=== PATIENT | female | born 1980 | race Caucasian/White ===

== ENCOUNTER 2023-12-18 13:55 | Emergency (ER) | payer SELFPAY ==
--- NOTE | ~2023-12-18 | CT_ITS ---
EXAMINATION: CT facial & cervical spine wo DATE: 12/18/2023 14:21 INDICATION: Neck pain. Head injury. Headache. TECHNIQUE: Computed tomography (CT) of the maxillofacial region and cervical spine was performed with out intravenous contrast. Automated exposure control and iterative reconstruction technique were empl oyed. The dose-length product was 177.78 mGy-cm. COMPARISON: None FINDINGS: MAXILLOFACIAL CT: There is frontal scalp soft tissue swelling. The orbits are normal. There is mild mucosal thickening in the paranasal sinuses. There is leftward deviation of the nasal septum. No fracture. The mastoid a ir cells are normal. There is extensive dental disease. CERVICAL SPINE CT: Bone alignment is normal. Vertebral body heights are normal. There is mildly decreased disc height at C5-C6. The following disc levels are specifically discussed: C2-C3: There is mild bilateral uncovertebral joint osteoarthritis. There is no facet joint osteoarthr itis. There is no neural foraminal stenosis. There is no central canal stenosis. C3-C4: There is no uncovertebral joint osteoarthritis. There is no facet joint osteoarthritis. There is no neural foraminal stenosis. There is no central canal stenosis. C4-C5: There is no uncovertebral joint osteoarthritis. There is no facet joint osteoarthritis. There is no neural foraminal stenosis. There is no central canal stenosis. C5-C6: There is mild bilateral uncovertebral joint osteoarthritis. There is mild bilateral facet join t osteoarthritis. There is no neural foraminal stenosis. There is mild central canal stenosis. C6-C7: There is no uncovertebral joint osteoarthritis. There is no facet joint osteoarthritis. There is no neural foraminal stenosis. There is no central canal stenosis. C7-T1: There is no uncovertebral joint osteoarthritis. There is mild bilateral facet joint osteoarthr itis. There is no neural foraminal stenosis. There is no central canal stenosis. IMPRESSION: 1. No fracture. 2. Mild cervical spondylosis. 3. Extensive dental disease. Reviewed, dictated and finalized at location A.
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
[2023-12-18 13:56] VITALS: BP 132/92; PULSE 103; RESP 18; TEMP 36.3; O2SAT 98
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
[2023-12-18 13:59] VITALS: BP 132/92; PULSE 103; RESP 18; TEMP 36.3; O2SAT 98
[2023-12-18] MEDS: ACETAMINOPHEN 500 MG TABLET 1000 MG PO (14:40)
[2023-12-18] MEDS: CYCLOBENZAPRINE HCL 10 MG TABLET PO (14:40)
== END 2023-12-18 15:07 | disposition home or self-care (01) ==
PROVIDERS: Emergency Provider Emergency Medicine
DX: S01.21XA Laceration without foreign body of nose, initial encounter (principal); S01.81XA Laceration without foreign body of other part of head, initial encounter; S16.1XXA Strain of muscle, fascia and tendon at neck level, initial encounter; Y04.2XXA Assault by strike against or bumped into by another person, initial encounter
CPT/HCPCS: 70450; 70486; 72125; 99284; A9270

== ENCOUNTER 2024-06-08 20:05 | Emergency (ER) | payer SELFPAY ==
--- NOTE | ~2024-06-08 | CT_ITS ---
EXAMINATION: CT brain wo con DATE: 06/08/2024 20:31 INDICATION: TRANSIENT ALTERATION OF AWARENESS. ETOH. . TECHNIQUE: Computed tomography (CT) of the head was performed without intravenous contrast. The mA wa s adjusted according to patient size. Iterative reconstruction technique was employed. The dose-lengt h product was 605.33 mGy-cm. COMPARISON: 12/18/2023. FINDINGS: No acute intracranial hemorrhage or extra-axial fluid collection. No hydrocephalus, mass, or herniation. No acute ischemic infarct. Unremarkable dural venous sinus attenuation. No acute osseous abnormality. Air-fluid level in the right maxillary sinus, right ethmoid mucosal thickening, the remaining aerated spaces are clear. IMPRESSION: No acute intracranial process. CT findings suggestive of acute right maxillary sinusitis. Reviewed, dictated and finalized at location K. SALES SYSTEMS ENGINEER
--- NOTE | 2024-06-08 20:07 | ECG_ITS ---
Test Date: 2024-06-08 20:16:47 Measurements Intervals [place] Rate: 82 P: 33 WA: 125 QRS: 66 QRSD: 94 T: 67 QT: 412 QTc: 484 Interpretive Statements SINUS RHYTHM INTERPRETATION BASED ON A DEFAULT AGE OF 40 YEARS No previous ECG available for comparison Electronically Signed On 06-10-2024 18:15:38 RESEARCH AND DEVELOPMENT DIRECTOR by Cherelle Glass M.D.
[2024-06-08 20:10] VITALS: BP 123/76; PULSE 82; PULSE 91; RESP 18; TEMP 36.8; O2SAT 100
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
[2024-06-08 20:21] VITALS: BP 105/70; PULSE 87; RESP 18; TEMP 35.7; O2SAT 98
[2024-06-08 20:51] VITALS: PULSE 93; RESP 17
[2024-06-08 21:00] VITALS: PULSE 90; RESP 14
[2024-06-08 21:15] VITALS: PULSE 95; RESP 20; O2SAT 100
[2024-06-08 21:30] VITALS: PULSE 88; RESP 18; O2SAT 100
[2024-06-08 21:55] LABS: Basophils Absolute Auto 0.05 K/mm3 (0.00-0.10); Basophils Percent Auto 0.5 % (0.0-1.0); Eosinophils Absolute Auto 0.12 K/mm3 (0.02-0.50); Eosinophils Percent Auto 1.2 % (1.0-6.0); Hematocrit 41.6 % (35.0-49.0); Hemoglobin 13.8 g/dL (12.0-15.0); Immature Granulocyte Absolute 0.05 K/mm3 (0.00-0.00); Immature Granulocyte Percent A 0.5 % (0.0-0.0); Lymphocytes Absolute Auto 1.78 K/mm3 (1.10-4.50); Lymphocytes Percent Auto 18.1 % (18.0-42.0); Mean Corpuscular HGB Conc 33.2 g/dL (32-36); Mean Corpuscular Hemoglobin 28.8 pg (27.0-31.0); Mean Corpuscular Volume 86.7 fL (78.0-102.0); Mean Platelet Volume 10.7 fl (9.2-11.8); Monocytes Percent Auto 5.1 % (2.0-11.0); Neutrophils Absolute Auto 7.31 K/mm3 (1.70-7.20); Neutrophils Percent Auto 74.6 % (50.0-70.0); Platelet Count Result 343 K/mm3 (150-420); Red Cell Distribution Width 12.6 % (11.6-14.4); White Blood Count 9.8 K/mm3 (4.8-10.8)
[2024-06-08 22:09] LABS: Alanine Aminotransferase 14 U/L (14-59); Albumin Level 3.3 g/dL (3.4-5.0); Alkaline Phosphatase 74 U/L (46-116); Anion Gap 12 mmol/L (4-12); Aspartate Amino Transferase < 10 U/L (15-37); Bilirubin,Total 0.2 mg/dL (0.00-1.00); Blood Urea Nitrogen 13 mg/dL (7-18); Calcium 8.2 mg/dL (8.5-10.1); Carbon Dioxide 25 mmol/L (21-32); Chloride 105 mmol/L (98-108); Estimated CRCL calculation 72 ml/min; Estimated Glomerular Filt Rate > 60; Ethanol 63 mg/dL (0-6); Glucose 74 mg/dL (70-99); Magnesium 1.8 mg/dL (1.8-2.4); Osmolality Calculated 293 mOsm/kg (285-295); Potassium 3.6 mmol/L (3.5-5.1); Sodium 142 mmol/L (136-145); Total Protein 6.3 g/dL (6.4-8.2); Troponin I < 4.0 ng/L (0.00-60.4)
== END 2024-06-08 21:47 | disposition left against medical advice (07) ==
PROVIDERS: Emergency Provider Family Medicine
DX: R41.82 Altered mental status, unspecified (principal)
CPT/HCPCS: 36415; 70450; 80053; 82077; 83735; 84484; 85025; 93005; 96374; 99284; J2405; J7120

== ENCOUNTER 2025-02-05 18:54 | Emergency (ER) | payer OTHER, SELFPAY ==
[2025-02-05 18:54] VITALS: BP 153/99; PULSE 106; RESP 18; TEMP 37.2; O2SAT 99
--- NOTE | 2025-02-05 18:55 | ED_ITS ---
HPI - Abdominal Pain General Chief Complaint: Abdominal Pain Stated Complaint: abdominal pain Time Seen by Provider: 02/05/25 18:54 Source: patient Mode of arrival: ambulatory Limitations: no limitations History of Present Illness HPI narrative: 45-year-old female with a history of alcohol use, Kidney stones status post cystoscopy with ureteral stents, presents to the ED with a 3 year history of -- upper abdominal pain which comes on periodically, stays for couple of hours and resolved spontaneously. Over the last few weeks the pain episodes have increased in intensity and duration. Patient is located in the upper abdomen and radiates to both shoulders. this morning when the pain came on it was rated as 8/10. It radiated to both shoulders. Currently the patient has a pain level of 2/10. -- Patient has nausea without any vomiting. No fever or chills. no diarrhea. No history of NSAID use. history of hysterectomy and status post 4 C sections MD elicited complaint: abdominal pain Pertinent past history: kidney stones Onset (ago): year(s) ( 3 years ago) Pain Consistency: other ( Now improved) Location: epigastric Severity: severe Quality: aching Radiation: other ( bilateral shoulders) Exacerbating factors: nothing Relieving factors: nothing Associated symptoms: nausea Related Data Allergies Allergy/AdvReac Type Severity Reaction Status Date / Time morphine Allergy Gastrointestinal Verified 02/05/25 18:56 Upset Review of Systems 2 Review of Systems: All systems reviewed & are unremarkable except as noted in HPI and below Constitutional: Constitutional: Reports as per HPI and Reports no additional constitutional complaints Eyes: Eyes: Reports as per HPI and Reports no additional eye complaints ENT: Reports system reviewed and no additional complaints, except as documented and Reports as per HPI Cardiovascular: Cardiovascular: Reports as per HPI and Reports no additional cardiovascular complaints Respiratory: Respiratory: Reports as per HPI and Reports no additional respiratory complaints Gastrointestinal: Gastrointestinal: Reports as per HPI, Reports no additional gastrointestinal complaints, Reports abdominal pain and Reports nausea Genitourinary: Genitourinary: Reports no additional female genitourinary complaints and Reports as per HPI Musculoskeletal: Musculoskeletal: Reports no additional musculoskeletal complaints and Reports as per HPI Integumentary/Breasts: Skin/Breast: Reports system reviewed and no additional complaints, except as docu and Reports as per HPI Neurologic: Reports system reviewed and no additional complaints, except as documented and Reports as per HPI Psychiatric: Psychiatric: Reports no additional psychiatric complaints and Reports as per HPI Endocrine: Endocrine: Reports no additional endocrine complaints and Reports as per HPI Hematologic/Lymphatic: Hematologic/Lymphatic: Reports no additional hematologic/lymphatic complaints and Reports as per HPI Allergic/Immunologic: Allergic/Immunologic: Reports no additional allergic/immunologic complaints and Reports as per HPI [facility] Surgical History Surgical History (Updated 02/05/25 @ 19:14 by Arturo Dodd MD) H/O: hysterectomy Exam 2 Narrative: blood pressure 153/99 Const: General: no acute distress Orientation/consciousness: patient oriented x3 Limitations: no limitations HENMT: Head: normal to inspection Ears: external ears normal F diya/Nose/Sinus: Normal external nose present Face and sinus: normal facial exam Mouth: Yes Normal oral and palatal mucosa present Throat: posterior oropharynx normal Eyes: Conjunctivae: conjunctivae normal Pupils: Equal, round and reactive pupils present EOM: EOMs intact bilaterally Direct Ophthalmoscopy: no photophobia Neck: Neck: normal visual inspection, no lymphadenopathy and no meningeal signs Chest: Chest palpation & inspection: normal inspection of the chest Resp: Effort & Inspection: normal respiratory effort Auscultation: clear to auscultation bilaterally Cardio: Rate: regular rate Rhythm: regular rhythm GI: GI Palp: Yes Soft to palpation Auscultation: normal bowel sounds O ther: upper abdominal tenderness without any rigidity/rebound : General: Yes no CVA tenderness Back/Spine/Pelvis: Back: no CVA tenderness Skin: General skin exam: normal color Rashes: no rashes Wounds: no wounds Neuro: General: patient oriented x3, moves all extremities, no meningeal signs, no focal motor deficits and CN's II-XI intact bilaterally Cranial nerves: Yes Nystagmus not present Speech: normal speech Gait exam (Neuro): Normal gait present Extrem: General: normal to inspection and no clubbing, cyanosis or edema Psych: Mental Status: mental status grossly normal Affect: normal affect Attitude: cooperative Course Course Emergency Course: abdominal pain-- Patient has tenderness of upper abdomen without any rigidity or rebound. Patient is afebrile with normal white cell count, normal lactate and a normal lipase. Urine examination is unremarkable. In view of her history of alcohol use upper abdominal pain appears to be secondary to gastritis. Vital Signs Vital signs: Vital Signs Temperature 37.2 C 02/05/25 18:54 Pulse Rate 106 H 02/05/25 18:54 Respiratory Rate 18 02/05/25 18:54 Blood Pressure 153/99 H 02/05/25 18:54 Pulse Oximetry 99 02/05/25 18:54 Oxygen Delivery Room Air 02/05/25 18:54 Temperature 37.2 C 02/05/25 18:54 Pulse Rate 106 H 02/05/25 18:54 Respiratory Rate 18 02/05/25 18:54 Blood Pressure 153/99 H 02/05/25 18:54 Pulse Oximetry 99 02/05/25 18:54 Oxygen Delivery Room Air 02/05/25 18:54 MDM - Abdominal Pain MDM Narrative Medical decision making narrative: Abdominal pain gastritis Differential Diagnosis Differential diagnosis: Likely pancreatitis Medical Records Attestation: I reviewed the patient's medical records. Lab Data Attestation: I reviewed the patient's lab results. 02/05/25 19:13 02/05/25 19:13 Labs: Lab Results 02/05/25 02/05/25 Range/Units 19:08 19:13 WBC 9.6 (4.8-10.8) K/mm3 RBC 4.44 (4.20-5.40) M/mm3 Hgb 12.7 (12.0-15.0) g/dL Hct 38.5 (35.0-49.0) % MCV 86.7 (78.0-102.0) fL MCH 28.6 (27.0-31.0) pg MCHC 33.0 (32-36) g/dL RDW 13.0 (11.6-14.4) % Plt Count 377 (150-420) K/mm3 MPV 9.9 (9.2-11.8) fl Immature Gran % (Auto) 0.3 H (0.0-0.0) % Neut % (Auto) 56.6 (50.0-70.0) % Lymph % (Auto) 33.5 (18.0-42.0) % [place] % (Auto) 7.6 (2.0-11.0) % Eos % (Auto) 1.7 (1.0-6.0) % Baso % (Auto) 0.3 (0.0-1.0) % Lymph # (Auto) 3.21 (1.10-4.50) K/mm3 [place] # (Auto) 0.73 (0.10-0.90) K/mm3 Eos # (Auto) 0.16 (0.02-0.50) K/mm3 Baso # (Auto) 0.03 (0.00-0.10) K/mm3 Abs Immat Gran (auto) 0.03 H (0.00-0.00) K/mm3 Absolute Neuts (auto) 5.42 (1.70-7.20) K/mm3 Absolute Nucleated RBC 0.00 (0.00-0.00) K/mm3 Nucleated RBC % 0.0 (0-0.0) % PT 10.0 (9.50-12.1) Seconds INR 0.9 Sodium 141 (137-145) mmol/L Potassium 3.4 (3.4-5.0) mmol/L Chloride 105 (98-107) mmol/L Carbon Dioxide 24 (22-30) mmol/L Anion Gap 12 (4-12) mmol/L BUN 10 (7-17) mg/dL Creatinine 0.73 (0.7-1.0) mg/dL Estim Creat Clear Calc 73 ml/min Estimated GFR > 60 (59 - ) Glucose 90 (65-110) mg/dL Calculated Osmolality 291 (285-295) mOsm/kg Lactic Acid 1.0 (0.4-2.0) mmol/L Calcium 9.7 (8.4-10.2) mg/dL Total Bilirubin 0.5 (0.2-1.3) mg/dL AST 28 (14-36) U/L ALT 16 (6-35) U/L Alkaline Phosphatase 66 (38-126) U/L Troponin I < 0.012 (0.000-0.034) ng/mL Total Protein 9.1 H (6.3-8.2) g/dL Albumin 4.6 (3.5-5.1) g/dL Lipase 81 (23-300) U/L Urine Color Yellow (Yellow) Urine Appearance Clear (Clear) Urine pH 6.0 (5.0-8.0) Ur Specific [place] >= 1.030 H (1.010-1.020) Urine Protein Negative (Negative) Urine Glucose (UA) Negative (Negative) Urine Ketones Trace H (Negative) Ur Blood (Man) Negative (Negative) Urine Nitrate Negative (Negative) Urine Bilirubin Negative (Negative) Urine Urobilinogen 0.2 (0.2-1.0) mg/dL Leukocyte Esterase Rfl Negative (Negative) ANMOL/UL Discharge Plan Discharge Clinical Impression: Abdominal pain Qualifiers: Abdominal location: epigastric Qualified Code(s): R10.13 - Epigastric pain Gastritis Qualifiers: Gastritis type: unspecified gastritis Chronicity: chronic Gastritis bleeding: w ithout bleeding Qualified Code(s): K29.50 - Unspecified chronic gastritis without bleeding Patient Disposition: Home Condition: Stable Instructions: Antibiotic Form, Gastritis (ED), Abdominal Pain (ED) Patient Language: Belarusian Prescriptions: New famotidine [Pepcid] 40 mg tablet 40 mg PO DAILY Qty: 30 0RF Follow-up/Referrals: UNKNOWN,DOCTOR [Non-Staff] Time of Disposition: 19:43
--- OUTSIDE RECORDS SUMMARY | 2025-02-05 18:56 | XMS_ITS | Clinical Summary ---
Author Organization [facility] Address [address] [place] [address] Care Team Providers Care Care Transition Mgr Name Role Phone Elvira Calvin MD Primary Care Provider Source Comments [facility],non-owned Affiliates and Associated Physician Practices is amultiple site organization consisting of ambulatory clinics and hospital sitesin [place], [place], [place] and [place]. This disclosure is being madepursuant to the Care Everywhere program and may not contain all information available regarding this patient. Last updated 18.[facility] Allergies Active Allergy Reactions Criticality Noted Date Comments Morphine Other,Unknown 01/05/2023 Pt become nauseated. Pt become nauseated. Medications * This document contains information received from the source organization and may not represent a complete record from that organization. * Be aware that medications may not be up to date on this document. Alwaysverify current medications with the patient. cyclobenzaprine (Flexeril) 10 MG tablet Take 1 (one) tablet by mouth 3 times daily as needed for Muscle Spasms 30 tablet 4 Active oxyCODONE, immediate release, (Roxicodone) 5 MG tabletIndications :Lumbar radiculopathy Take 1 (one) tablet by mouth every 6 hours as needed for Pain 30 tablet 4 Active acetaminophen (Tylenol) 500 MG capsule Take 2 (two) capsules by mouth 3 times daily 180 capsule 4 Active Additional Information Patient taking differently: 500-1,000 mgOralEVERY 6 HOURS PRN, Fever, Pain, Headache, Reported on 06/08/2023 polyethylene glycol 3350 (Miralax) 17 GM/SCOOP powder Take 17 (seventeen) g by mouth once daily 238 g 4 Active Additional Information Patient taking differently:17 g OralDAILY PRN, Constipation, Reported on 06/08/2023 docusate sodium (Colace) 100 MG capsule Take 1 (one) capsule by mouth 2 times daily 60 capsule 4 Active Additional Information Patient taking differently:100 mg Oral2 TIMES DAILY PRN, Constipation, Reported on 06/08/2023 Active Problems Problem Noted Date Diagnosed Date Lumbar radiculopathy 02/10/2023 04/04/2023 Overview (04/04/2023): Added automatically from request for surgery [id number] Major depressive disorder, r ecurrent, severe without psychotic features 03/12/2018 Immunizations Immunization Administration Dates Next Due FLU VACCINE QUAD IIV4 SPLIT 0.25 ML IM 3 INFLUENZA VACCINE 03/23/2021 INFLUENZA VACCINE, QUADR. (A FLURIA, FLUZONE QUADRIVALENT; 6MO+) (IIV4) 03/25/2022 INFLUENZA VACCINE, QUADR. (F LUZONE; FLULAVAL; FLUARIX; AFLURIA QUADRIVALENT; 6MO+), 0.5 ML (IIV4) 03/13/2018 INFLUENZA VACCINE, TRIV. (FL UZONE; FLULAVAL; FLUARIX; AFLURIA TRIVALENT; 6MO+), 0.5 ML (IIV3) 03/23/2021 TDAP (7yrs+) 03/06/2023 TDAP, HISTORIC VACCINE 06/26/2014,12/18/2012 Family History Medical History Relation Name Comments None Known Brother 1 None Known Brother 2 CVA Father Cancer - Pancreatic Father Cancer - Thyroid Father High Blood Pressure Father None Known Maternal Grandfather pt did not know grandparents None Known Maternal Grandmother pt did not know grandparents [place] Disease Mother None Known Paternal Grandfather pt did not know grandparents None Known Paternal Grandmother pt did not know grandparents Relation Name Status Comments Brother 1 Alive Brother 2 Alive Father Maternal Grandfather Maternal Grandmother Mother Paternal Grandfather Paternal Grandmother Social History Tobacco Use Types Packs/Day Years Used Date Smoking Tobacco: Every Day Cigarettes 0.5 30.9 Started: 03/12/1994 Passive Smoke Exposure: Never Smokeless Tobacco: Never Tobacco Cessation:Ready to Q uit: Not Asked; Counseling Given: Not Answered Comments:Pt tried chantix, hypnosis, tried cold turkey Alcohol Use Standard Drinks/Week Comments Yes 5 (1 standard drink = 0.6 oz pure alcohol) Drinks high alcohol content beer. stopped two weeks ago. AUDIT-C Answer Date Recorded Q1: How often do you have a drink containing alc ohol? 2-3 times a week 05/24/2023 Q2: How many drinks containi ng alcohol do you have on a typical day when you are drinking? 1 or 2 05/24/2023 Q3: How often do you have si x or more drinks on one occasion? Never 05/24/2023 PHQ-2 Answer Date Recorded Patient Health Questionnaire-2 Score 0 05/04/2023 Comments No Sex and Gender Information Value Date Recorded Sex Assigned at Female 05/13/2023 9:48 PM TRANSIT PROOF MACHINE OPERATOR Legal Sex Female 5:35 AM CDT Gender Identity Female 05/13/2023 9:48 PM TRANSIT PROOF MACHINE OPERATOR Sexual Orientation Straight 05/13/2023 9: 48 PM TRANSIT PROOF MACHINE OPERATOR Last Filed Vital Signs Vital Sign Reading Time Taken Comments Blood Pressure 111/69 05/24/2023 1:15 PM TRANSIT PROOF MACHINE OPERATOR Pulse 70 05/24/2023 1:15 PM TRANSIT PROOF MACHINE OPERATOR Temperature 35.7 C (96.3 F) 05/24/2023 12:55 PM TRANSIT PROOF MACHINE OPERATOR Respiratory Rate 10 05/24/2023 1:26 PM TRANSIT PROOF MACHINE OPERATOR Oxygen Saturation 99% 05/24/2023 1:26 PM TRANSIT PROOF MACHINE OPERATOR Inhaled Oxygen Concentration - - Weight 64.9 kg (143 lb) 05/24/2023 7:47 AM TRANSIT PROOF MACHINE OPERATOR Height 162.6 cm (5' 4) 05/24/2023 7:47 AM TRANSIT PROOF MACHINE OPERATOR Body Mass Index 24.55 05/24/2023 7:47 AM TRANSIT PROOF MACHINE OPERATOR Plan of Treatment Upcoming Encounters Date Type Department Care Team (Late st Contact Info) Description 05/29/2025 1:30 PM TRANSIT PROOF MACHINE OPERATOR Office Visit [facility] - Orthopedics [address] [place] [address] [place] [address] Omar Gross MD [address] [facility] [place] [address] Health Maintenance Due Date Last Done Comments COLOGUARD (AGES 45-75) - COLON CA SCREENING 1980 COLON MONITORING 1980 COLONOSCOPY - COLON CA SCREENING 1980 CT COLONOGRAPHY - COLON CA SCREENING 1980 Colorectal Cancer Screening 1980 FIT - COLON CA SCREENING 1980 FLEX SIG - COLON CA SCREENING 1980 MAMMOGRAM 1980 HIV SCREENING 01/09/1995 HEPATITIS C SCREENING 01/05/1998 HEPATITIS B VACCINE (1 of 3 - 19+ 3-dose series) 01/09/1999 PNEUMOCOCCAL VACCINE (1 of 2 - PCV) 01/09/1999 HPV VACCINE (1 - 3-dose SCDM series) 01/09/2007 LIPID TESTING 03/14/2023 03/14/2018 DEPRESSION SCREENING 05/22/2024 01/05/2023 COVID-19 VACCINE (3 - 2024- season) 2025 07/16/2021, 06/17/2021 INFLUENZA VACCINE (#1) 2025 , 03/25/2022, 03/23/2021, Additional history exists ZOSTER VACCINE (1 of 2) 01/09/2030 DTAP/TDAP/TD VACCINES (4 - Td or Tdap) 03/06/2033 03/06/2023, 06/26/2014, 12/18/2012 HIB VACCINE Aged Out No longer eligi ble based on patient's age to complete this topic MENINGOCOCCAL (Group B) VACCINE SHARED DECISION-MAKING Aged Out No longer eligible based on patient's age to complete this topic MENINGOCOCCAL GROUPS A/C/Y/W VACCINE Aged Out No longer eligible based on patient's age to complete this topic Procedures Procedure Name Priority Date/Time Associated Diagnosis Comments LIPID PROFILE AM Draw 03/14/2018 6:33 AM CDT from Last 3 Months or Most Recently Relevant to Health Maintenance Results * LIPID PROFILE (03/14/2018 6:33 AM CDT) Cholesterol 179 <200 mg/dL 03/14/2018 7:39 AM T [facility] Triglycerides 74 <150 mg/dL 03/14/2018 7:39 AM T [facility] HDL Cholesterol 65 >40 mg/dL 8 7:39 AM T [facility] Chol HDL Ratio 2.8 1.0 - 6.0 03/14/2018 7:39 AM [facility] LDL Calculated 99 65 - 130 mg/dL 03/14/2018 7:39 AM T [facility] VLDL Calculated 15 10 - 40 mg/dL 03/14/2018 7:39 AM T [facility] Blood BLOOD SPECIMEN / Unknown Lab Venipuncture / Unknown 03/14/2018 6:33 AM CDT 03/14/2018 6:52 AM CDT [facility]ATORY - 03/14/2018 7:39 AM T Lipid Profile Comment: CHOLESTEROL LEVEL..................CLINICAL INTERPRETATION LESS THAN 200 MG/DL..............................DESIRABLE 200-239 MG/DL..............................BORDERLINE HIGH GREATER THAN 240 MG/DL................................HIGH LDL-CHOLESTEROL LEVEL..............CLINICAL INTERPRETATION LESS THAN 100 MG/DL................................OPTIMAL 100-129 MG/DL.................................NEAR OPTIMAL GREATER THAN 160 MG/DL...........................HIGH RISK HDL RISK LEVEL GREATER THEN 60 MG/DL............................DECREASED 40-60 MG/DL........................................AVERAGE LESS THAN 40 MG/DL...............................INCREASED TRIGLYCERIDE LEVEL..................CLINICAL INTERPRETATION LESS THAN 150 MG/DL...............................DESIRABLE 150-199 MG/DL...............................BORDERLINE HIGH 200-499 MG/DL..........................................HIGH GREATER THAN 500..................................VERY HIGH THE NATIONAL CHOLESTEROL EDUCATION PROGRAM HAS SET THE ABOVE GUIDELINES (REFERANCE VALUES) FOR CHOLESTEROL AND HDL. RISK ASSOCIATED WITH CHOLESTEROL/HDL RATIOS RISK....................MALE RATIO.............FEMALE RATIO 1/2 AVERAGE.................<3.4.......................<3.3 LOW RISK.................... 4.0 ...................... 3.8 AVERAGE..................... 5.0 ...................... 4.5 2X AVERAGE.................. 9.5 ...................... 7.0 3X AVERAGE...................>23........................>11 us Eulogio Resendiz [place] HOOK UP-CREDIT AND COLLECTION MANAGER LAB - CHEMISTRY ORDERABL ES Final Result [facility] [address] from Last 3 Months or Most Recently Relevant to Health Maintenance Insurance MEDICAID LIMITED BENEFIT - [place] * Guarantor: CINDY RANDOLPH Account Type Relation to Patient Date of Phone Billing Address Personal/Family 1980 Advance Directives * Full Code (Latest Code Status on File) Date Activated Date Inactivated Comments 03/12/2018 6:03 PM 03/16/2018 11:06 AM Care Teams Care Transition Mgr Relationship Specialty Start Date End Date Elvira Calvin MD [address] [place] [address] PCP - General Internal Medicine 05/04/23
--- NOTE | 2025-02-05 19:06 | PC.NURSE ---
Shift report given to MER Par[place]
[2025-02-05 19:18] LABS: Hematocrit 38.5 % (35.0-49.0); Hemoglobin 12.7 g/dL (12.0-15.0); Immature Granulocyte Percent A 0.3 % (0.0-0.0); Lymphocytes Absolute Auto 3.21 K/mm3 (1.10-4.50); Mean Corpuscular HGB Conc 33.0 g/dL (32-36); Mean Corpuscular Hemoglobin 28.6 pg (27.0-31.0); Mean Corpuscular Volume 86.7 fL (78.0-102.0); Nucleated Red Blood Cells Absolute Auto 0.00 K/mm3 (0.00-0.00); Nucleated Red Blood Cells Perc 0.0 % (0-0.0); Platelet Count Result 377 K/mm3 (150-420); Red Blood Count 4.44 M/mm3 (4.20-5.40); White Blood Count 9.6 K/mm3 (4.8-10.8)
[2025-02-05 19:20] LABS: Add Urine Microscopic? NO; Appearance Urine Clear (Clear); Glucose Urine UA Negative (Negative); Leukocyte Esterase Ur Negative LEU/UL (Negative); Nitrate Urine Negative (Negative); Specific Grav Ur >= 1.030 (1.010-1.020)
[2025-02-05 19:31] LABS: Alanine Aminotransferase 16 U/L (6-35); Albumin Level 4.6 g/dL (3.5-5.1); Alkaline Phosphatase 66 U/L (38-126); Anion Gap 12 mmol/L (4-12); Aspartate Amino Transferase 28 U/L (14-36); Bilirubin,Total 0.5 mg/dL (0.2-1.3); Blood Urea Nitrogen 10 mg/dL (7-17); Calcium 9.7 mg/dL (8.4-10.2); Carbon Dioxide 24 mmol/L (22-30); Chloride 105 mmol/L (98-107); Estimated CRCL calculation 73 ml/min; Estimated Glomerular Filt Rate > 60; Glucose 90 mg/dL (65-110); INR 0.9; Lipase 81 U/L (23-300); Osmolality Calculated 291 mOsm/kg (285-295); Potassium 3.4 mmol/L (3.4-5.0); Prothrombin Time 10.0 Seconds (9.50-12.1); Sodium 141 mmol/L (137-145); Total Protein 9.1 g/dL (6.3-8.2)
--- OUTSIDE RECORDS SUMMARY | 2025-02-05 19:40 | XMS_ITS | Clinical Summary ---
Author Organization [facility] Address [address] [place] [id number] Care Team Providers Care Road Supervisor Name Role Phone Rios Dickerson PA-C Primary Care Provider [phone] Allergies Active Allergy Reactions Criticality Noted Date Comments Morphine Nausea Only 01/05/2023 Pt become nauseated. Medications * This document contains information received from the source organization and may not represent a complete record from that organization. diclofenac EC (VOLTAREN) 75 MG tablet 04/18/2022 Active Active Problems Problem Noted Date Diagnosed Date Lumbar radiculopathy 02/10/2023 Overview (02/10/2023): Added automatically from request for surgery [id number] Immunizations Immunization Administration Dates Next Due Influenza (Generic) 03/23/2021 Influenza Adult (Generic) 03/13/2018 Tdap (Boostrix) 03/06/2023 Tdap (Generic) 06/26/2014,12/18/2012 Family History Medical History Relation Comments Heart Attack Father Stroke Father Relation Status Comments Father Mother Social History Tobacco Use Types Packs/Day Years Used Date Smoking Tobacco: Every Day Cigarettes 0.5 24 Smokeless Tobacco: Former Tobacco Cessation:Ready to Q uit: Not Asked; Counseling Given: Not Answered Alcohol Use Standard Drinks/Week Comments Yes 1.7 (1 standard drink = 0.6 oz p ure alcohol) after work PHQ-2 Answer Date Recorded Patient Health Questionnaire-2 Score 0 06/17/2022 Comments No Sex and Gender Information Value Date Recorded Sex Assigned at Female 08/12/2024 11:50 AM CDT Legal Sex Female 1:58 PM CDT Gender Identity Not on file Sexual Orientation Not on file Last Filed Vital Signs Vital Sign Reading Time Taken Comments Blood Pressure 140/75 03/06/2023 9:02 PM CDT Pulse 93 03/06/2023 9:02 PM CDT Temperature 36.7 C (98 F) 03/06/2023 9:02 PM CDT Respiratory Rate 14 03/06/2023 9:02 PM CDT Oxygen Saturation 97% 03/06/2023 9:02 PM CDT Inhaled Oxygen Concentration - - Weight 67.6 kg (149 lb) 03/06/2023 9:02 PM CDT Height 162.6 cm (5' 4) 03/06/2023 9:02 PM CDT Body Mass Index 25.58 03/06/2023 9:02 PM CDT Plan of Treatment Health Maintenance Due Date Last Done Comments Colorectal Cancer Screening Colonoscopy (10 Years) 1980 Annual Physical 01/09/1983 Hepatitis C 01/09/1998 Hepatitis B Vaccines (1 of 3 - 19+ 3-dose series) 01/09/1999 Pneumococcal Vaccine: Pediatrics (0 to 5 Years) and At-Risk Patients (6 to 49 Years) (1 of 2 - PCV) 01/09/1999 HPV Vaccines (1 - 3-dose SCD M series) 01/09/2007 Mammogram Screening 2020 PHQ-2 (Physician [place]) 05/22/2024 COVID-19 Vaccine (3 - 2024-2 6 season) 2025 07/16/2021, 06/17/2021 DTaP, Tdap and Td Vaccines ( 4 - Td or Tdap) 03/06/2033 03/06/2023, 06/26/2014, 12/18/2012 Meningococcal B Vaccine Aged Out No l onger eligible based on patient's age to complete this topic Meningococcal Vaccine Aged Out No dharmesh shankar eligible based on patient's age to complete this topic RSV Immunizations Under 20 Months Aged Out No longer eligible b ased on patient's age to complete this topic Insurance [facility] Advance Directives Documents on File Type Date Recorded Patient Respiratory Therapy Aide Expl anation Advance Directives and Living Will 01/18/2017 12:00 AM ADVANCED DIRECTIVES Care Teams Road Supervisor Relationship Specialty Start Date End Date Rios Dickerson PA-C PCP - General PHYSICIAN WHEEL CLEANER 03/25/22
--- OUTSIDE RECORDS SUMMARY | 2025-02-05 19:40 | XMS_ITS | Clinical Summary ---
Author Organization [facility] Address [address] [place] [address] Care Team Providers Care Chief Mechanical Engineer Name Role Phone Elvira Calvin MD Primary Care Provider Source Comments [facility],non-owned Affiliates and Associated Physician Practices is amultiple site organization consisting of ambulatory clinics and hospital sitesin [place], [place], [place] and [place]. This disclosure is being madepursuant to the Care Everywhere program and may not contain all information available regarding this patient. Last updated 18.[facility] Allergies Active Allergy Reactions Criticality Noted Date [...] (04/04/2023): Added automatically from request for surgery [id number] Major depressive disorder, r ecurrent, severe without [...] Maternal Grandmother pt did not know grandparents [place] Disease Mother None Known Paternal Grandfather pt [...] Sex Assigned at Female 05/13/2023 9:48 PM WIRE FRAME MAKER Legal Sex Female 5:35 AM CDT Gender Identity Female 05/13/2023 9:48 PM WIRE FRAME MAKER Sexual Orientation Straight 05/13/2023 9: 48 PM WIRE FRAME MAKER Last Filed Vital Signs Vital Sign Reading Time Taken Comments Blood Pressure 111/69 05/24/2023 1:15 PM WIRE FRAME MAKER Pulse 70 05/24/2023 1:15 PM WIRE FRAME MAKER Temperature 35.7 C (96.3 F) 05/24/2023 12:55 PM WIRE FRAME MAKER Respiratory Rate 10 05/24/2023 1:26 PM WIRE FRAME MAKER Oxygen Saturation 99% 05/24/2023 1:26 PM WIRE FRAME MAKER Inhaled Oxygen Concentration - - Weight 64.9 kg (143 lb) 05/24/2023 7:47 AM WIRE FRAME MAKER Height 162.6 cm (5' 4) 05/24/2023 7:47 AM WIRE FRAME MAKER Body Mass Index 24.55 05/24/2023 7:47 AM WIRE FRAME MAKER Plan of Treatment Upcoming Encounters Date Type Department Care Team (Late st Contact Info) Description 05/29/2025 1:30 PM WIRE FRAME MAKER Office Visit [facility] - [facility]opedics [address] [place] [address] [place] [address] Omar Gross MD [address] [facility] [place] [address] Health Maintenance Due Date Last Done Comments [...] 179 <200 mg/dL 03/14/2018 7:39 AM T [facility] Triglycerides 74 <150 mg/dL 03/14/2018 7:39 AM T [facility] HDL Cholesterol 65 >40 mg/dL 8 7:39 AM T [facility] Chol HDL Ratio 2.8 1.0 - 6.0 03/14/2018 7:39 AM [facility] LDL Calculated 99 65 - 130 mg/dL 03/14/2018 7:39 AM T [facility] VLDL Calculated 15 10 - 40 mg/dL 03/14/2018 7:39 AM T [facility] Blood BLOOD SPECIMEN / Unknown Lab Venipuncture / Unknown 03/14/2018 6:33 AM CDT 03/14/2018 6:52 AM CDT [facility] LABORATORY - 03/14/2018 7:39 AM T Lipid [...] ...................... 7.0 3X AVERAGE...................>23........................>11 us Eulogio Resendiz [place] CHEMICAL EQUIPMENT SALES ENGINEER-PLATEN PRESS OPERATOR APPRENTICE LAB - CHEMISTRY ORDERABL ES Final Result [facility] [address] from Last 3 Months or Most Recently Relevant to Health Maintenance Insurance MEDICAID LIMITED BENEFIT - [place] * Guarantor: Cindy Randolph Account Type Relation to Patient Date of Phone Billing Address Personal/Family Self [address] [place] [phone] * Guarantor: CINDY RANDOLPH Account Type Relation to Patient Date of Phone Billing Address Personal/Family 1980 Advance Directives * Full Code (Latest Code Status on File) Date Activated Date Inactivated Comments 03/12/2018 6:03 PM 03/16/2018 11:06 AM Care Teams Chief Mechanical Engineer Relationship Specialty Start Date End Date Elvira Calvin MD [address] [place] [address] PCP - General Internal Medicine 05/04/23
[2025-02-05 19:43] LABS: Troponin I < 0.012 ng/mL (0.000-0.034)
== END 2025-02-05 19:52 | disposition home or self-care (01) ==
PROVIDERS: Emergency Provider Internal Medicine Critical Care Medicine; Referring Provider Internal Medicine
DX: K29.50 Unspecified chronic gastritis without bleeding (principal)
CPT/HCPCS: 36415; 80053; 81003; 83605; 83690; 84484; 85025; 85610; 99284